=== PATIENT | male | born 2000 | race Caucasian/White ===

== ENCOUNTER 2019-01-29 13:23 | Emergency (ER) | payer OTHER ==
[2019-01-29 13:31] VITALS: BP 137/86; PULSE 100; TEMP 98.5; BMI 21.6
[2019-01-29] MEDS ORDERED: IBUPROFEN 600 MG TABLET (FP) PO ONE ×2 (15:10)
--- NOTE | 2019-01-29 15:10 | PDOC ---
History of Present Illness - General Chief Complaint: Cold Symptoms Stated Complaint: FEVER/ABD PAIN Time Seen by Provider: 01/29/19 14:19 History Source: Patient Exam Limitations: No Limitations Past History - Travel Traveled outside of the country in the last 30 days: No Close contact w/someone who was outside of country & ill: No - Past Medical History Allergies/Adverse Reactions: Allergies Allergy/AdvReac Type Severity Reaction Status Date / Time No Known Allergies Allergy Verified 01/29/19 13:29 COPD: No - Immunization History Immunization Up to Date: Yes - Suicide/Smoking/Psychosocial Hx Smoking History: Never smoked Hx Alcohol Use: No Drug/Substance Use Hx: No Review of Systems - Review of Systems Able to Perform ROS?: Yes Comments:: 01/29/19 15:10 CONSTITUTIONAL Absent: Diaphoresis, Fever, Loss of Appetite, Malaise, Weakness HEENT: Present: congestion Absent: Mouth Swelling RESPIRATORY: Present: cough Absent: Stridor, Wheezing CARDIOVASCULAR: Absent: Edema, Loss of consciousness GASTROINTESTINAL: Present: abdominal pain Absent: Diarrhea, Vomiting GENITOURINARY: Absent: Hematuria, Testicular Swelling, Lesions MUSCULOSKELETAL: Absent: Joint Swelling INTEGUEMENTARY: Absent: Lesions, Pallor, Rash NEUROLOGICAL: Absent: Seizure, Weakness, Dizziness ENDOCRINE: Absent: Unexplained Weight Gain, Unexplained Weight Loss HEMATOLOGY: Absent: Easy Bleeding, Easy Bruising, Lymph Node Abnormalities Is the patient limited [place] proficient: No *Physical Exam - Vital Signs Last Vital Signs Temp Pulse Resp BP Pulse Ox 98.5 F 100 H 20 137/86 98 01/29/19 13:29 01/29/19 13:29 01/29/19 13:29 01/29/19 13:29 01/29/19 13:29 - Physical Exam Comments: 01/29/19 15:10 GENERAL: Well developed, well nourished. Awake and alert. No acute distress. HEENT: Normocephalic, atraumatic. PERRLA, EOMI. No conjunctival pallor. Sclera are non- icteric. Moist mucous membranes. Oropharynx is clear. NECK: Supple. Full ROM. No JVD. Carotid pulses 2+ and symmetric, without bruits. No thyromegaly. No lymphadenopathy. CARDIOVASCULAR: Regular rate and rhythm. No murmurs, rubs, or gallops. Distal pulses are 2+ and symmetric. PULMONARY: No evidence of respiratory distress. Lungs clear to auscultation bilaterally. No wheezing, rales or rhonchi. ABDOMINAL: L inguinal hernia present with increased intraabdominal pressure. Soft. Non- tender. Non-distended. No rebound or guarding. No organomegaly. Normoactive bowel sounds. MUSCULOSKELETAL Normal range of motion at all joints. No bony deformities or tenderness. No CVA tenderness. EXTREMITIES: No cyanosis. No clubbing. No edema. No calf tenderness. SKIN: Warm and dry. Normal capillary refill. No rashes. No jaundice. NEUROLOGICAL: Alert, awake, appropriate. Cranial nerves 2-12 intact. No deficits to light touch and temperature in face, upper extremities and lower extremities. No motor deficits in the in face, upper extremities and lower extremities. Normoreflexic in the upper and lower extremities. Normal speech. Toes are down- going bilaterally. Gait is normal without ataxia. PSYCHIATRIC: Cooperative. Good eye contact. Appropriate mood and affect. 01/30/19 13:37 Moderate Sedation - Procedure Monitoring Vital Signs: Procedure Monitoring Vital Signs Temperature 98.5 F 01/29/19 13:29 Pulse Rate 100 H 01/29/19 13:29 Respiratory Rate 20 01/29/19 13:29 Blood Pressure 137/86 01/29/19 13:29 O2 Sat by Pulse Oximetry (%) 98 01/29/19 13:29 Medical Decision Making - Medical Decision Making 01/29/19 16:39 patient is a 18-year-old male with no past medical history who presents to the ER today with 4 days of cough, congestion, intermittent fevers and abdominal pain. Patient states that when he coughs he feels a pain in his lower abdomen. He states that when he does not cough he does not have abdominal pain. He states that he has been taking Tylenol for her symptoms with relief. Denies shortness of breath, difficulty breathing, nausea, vomiting, diarrhea, constipation, frequency, urgency and hematuria. A: Viral syndrome/abdominal pain Exam with left inguinal hernia, easily reducible. P: Flu swab ordered; negative at this time. Surgery consult for reducible hernia. We will send home with symptomatic treatment. Discharge home I discussed the physical exam findings, ancillary test results and final diagnoses with the patient. I answered all of the patient's questions. The patient was satisfied with the care received and felt comfortable with the discharge plan and treatment plan. The Patient agrees to follow up with the primary care physician/specialist within 24-72 hours. Return precautions were given. *DC/Admit/Observation/Transfer Diagnosis at time of Disposition: URI (upper respiratory infection) Qualifiers: URI type: unspecified viral URI Qualified Code(s): J06.9 - Acute upper respiratory infection, unspecified - Discharge Dispostion Disposition: HOME Condition at time of disposition: Stable Decision to Admit order: No - Referrals Referrals: Leonid Burns MD [Staff Physician] - Devante Severino MD [Staff Physician] - - Patient Instructions Printed Discharge Instructions: DI for Viral Upper Respiratory Infection -- Adult Additional Instructions: You have an upper respiratory infection, or the common cold. Your flu testing was negative today. Please take Motrin 800 mg every 8 hours as needed for pain not to exceed 3000 mg a day. Drink plenty of fluids. Cough drops and warm tea may help your symptoms as well. Please follow up with her primary care doctor this week. A surgical consult has been provided to evaluate your hernia. Return to the emergency department if you have difficulty breathing, shortness of breath, worsening pain, nausea, vomiting or if you have any changes in your symptoms. - Post Discharge Activity Forms/Work/School Notes: Back to Work
== END 2019-01-29 17:10 | disposition home or self-care (01) ==
LOC: JERFT 13:23
DX: J06.9 Acute upper respiratory infection, unspecified (principal); B97.89 Other viral agents as the cause of diseases classified elsewhere
CPT/HCPCS: 87804; 99281-25

== ENCOUNTER 2021-10-26 18:20 | Emergency (ER) | payer OTHER ==
[2021-10-26 20:05] VITALS: BP 128/77; PULSE 82; TEMP 98.3; BMI 27.4
[2021-10-26] MEDS ORDERED: IBUPROFEN 400 MG TABLET (FP) PO ONE ×2 (20:21→22:42)
[2021-10-26] MEDS ORDERED: DIPHTH,PERTUSS(ACELL),TET 0.5 ML DISP.SYRIN IM ONE ×2 (20:21→22:42)
[2021-10-26] MEDS ORDERED: CLINDAMYCIN 600MG PREMIX IVPB 600 MG/50 ML BAG IVPB ONE ×2 (20:21→22:42)
== END 2021-10-27 00:47 | disposition home or self-care (01) ==
LOC: JERFT 18:20
PROC: 3E033GC Introduction of Other Therapeutic Substance into Peripheral Vein, Percutaneous Approach (ICD-10-PCS; principal; 2021-10-26)
PROC: 3E0234Z Introduction of Serum, Toxoid and Vaccine into Muscle, Percutaneous Approach (ICD-10-PCS; 2021-10-26)
DX: S61.451A Open bite of right hand, initial encounter (principal); L03.113 Cellulitis of right upper limb; W54.0XXA Bitten by dog, initial encounter
CPT/HCPCS: 73110-TC-RT-FY; 73130-TC-RT-FY; 90471; 90715; 99284-25

== ENCOUNTER 2024-07-01 23:11 | Emergency (ER) | payer SELFPAY ==
[2024-07-01 23:20] VITALS: BP 124/64; PULSE 60; RESP 18; TEMP 98.3; BMI 26.6
== END 2024-07-02 00:55 | disposition home or self-care (01) ==
LOC: JER 23:11
DX: L23.7 Allergic contact dermatitis due to plants, except food (principal)
CPT/HCPCS: 99283-25